=== PATIENT | female | born 1970 | race Two or more races ===

== ENCOUNTER 2023-06-07 21:15 | Emergency (ER) | payer OTHER ==
[~2023-06-07] VITALS: Ht 152.4 cm; Wt 95.3 kg
[~2023-06-07 21:15] MED LIST: CIPRO500 MG PO; KETO10TA2 PO; ORPH100T PO
[2023-06-07] MEDS ORDERED: COZAAR100 MG (21:47)
[2023-06-07] MEDS ORDERED: COPAXONE20 MG/1 ML (21:48)
[2023-06-08 01:16] LABS: HEMATOCRIT 40.6 % (36.0-45.00); HEMOGLOBIN 13.7 g/dL (12.0-15.00); MEAN CELL VOLUME 83.4 fL (80.00-100.00); MEAN CORPUSCULAR HEMOGLOBIN 28.3 pg (27.00-32.0); MEAN CORPUSCULAR HGB CONC 33.9 g/dl (32.0-36.0); PLATELET COUNT 198 K/uL (150-450); RED BLOOD COUNT 4.86 M/uL (4.00-6.00); RED CELL DISTRIBUTION WIDTH 14.7 % (11.5-14.5)
[2023-06-08 01:38] LABS: INR 0.94; PARTIAL THROMBOPLASTIN TIME 27.5 SECONDS (22.0-34.0); PROTHROMBIN TIME 9.9 SECONDS (9.0-11.5)
[2023-06-08] MEDS ORDERED: HYDROCHLOROTHIA25 MG PO (05:12)
== END 2023-06-08 05:14 ==
LOC: ER 21:15
PROVIDERS: General Practice
DX: R04.0 Epistaxis (principal); I10 Essential (primary) hypertension
CPT/HCPCS: 36415; 93005; 96365; 99284; J1885